=== PATIENT | female | born 1995 | race African-American/Black ===

== ENCOUNTER 2023-03-12 17:02 | Emergency (ER) | payer SELFPAY ==
[~2023-03-12] VITALS: Ht 162.6 cm; Wt 54.5 kg
[2023-03-12 17:08] VITALS: TEMP 99.3
[2023-03-12 18:20] VITALS: BP 114/70; PULSE 85; RESP 18
[2023-03-12] MEDS ORDERED: AMOX1TAB16 PO (18:56)
[2023-03-12] MEDS ORDERED: AMOX TR/POT CLAV 875 MG/125 MG TABLET PO ONE (19:00)
[2023-03-12] MEDS ORDERED: IBUPROFEN 600 MG TABLET PO ONE (19:15)
== END 2023-03-12 19:31 | disposition home or self-care (01) ==
LOC: EMS 17:06
DX: H66.91 Otitis media, unspecified, right ear (principal); F12.90 Cannabis use, unspecified, uncomplicated
CPT/HCPCS: 99283